=== PATIENT | female | born 1970 | race Caucasian/White ===

== ENCOUNTER 2016-10-25 13:06 | Inpatient (IN) | payer MEDICAID ==
[2016-10-25 13:07] VITALS: BMI 22.8
[2016-10-25] MEDS ORDERED: Sodium Chloride 0.9% 1,000 ML IV ONE ×2 (13:47→15:08)
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
[2016-10-25 14:29] LABS: BASO % 0.5 % (0.0-2.0); EOS # 0.1 K/uL (0.0-0.7); EOS % 1.9 % (0.0-4.0); HEMATOCRIT 34.6 % (34.0-47.0); LYMPH % 33.4 % (20.0-40.0); MEAN CELL VOLUME 80.1 fL (81.0-99.0); MEAN CORPUSCULAR HEMOGLOBIN 25.4 pg (27.0-31.0); MEAN CORPUSCULAR HGB CONC 31.7 g/dL (33.0-37.0); MEAN PLATELET VOLUME 10.4 fL (7.2-11.7); MONO # 0.6 K/uL (0.0-0.8); MONO % 9.9 % (0.0-10.0); RED CELL DISTRIBUTION WIDTH 15.4 % (11.5-14.5); WHITE BLOOD COUNT 5.9 K/uL (4.8-10.8)
[2016-10-25] MEDS ORDERED: Sodium Chloride 0.9% 0 ML ONE (14:33)
[2016-10-25 14:39] LABS: CHLORIDE 101 mmol/L (98-107); POTASSIUM 3.2 mmol/L (3.6-5.2); SODIUM 139 mmol/L (132-148)
[2016-10-25 14:41] LABS: GFR AFRICAN-AMERICAN > 60
[2016-10-25 14:42] LABS: ALB/GLOB RATIO 1.1 (1.0-2.1); ALKALINE PHOSPHATASE 79 U/L (38-126); ALT/SGPT 26 U/L (9-52); AST/SGOT 20 U/L (14-36); BILIRUBIN,TOTAL 0.8 mg/dL (0.2-1.3); BLOOD UREA NITROGEN 12 mg/dL (7-17); CARBON DIOXIDE 28 mmol/L (22-30); GLUCOSE,RANDOM 219 mg/dL (65-105); TOTAL PROTEIN 6.8 g/dL (6.3-8.3)
[2016-10-25 14:43] LABS: ALCOHOL SERUM < 10 mg/dl (0-10)
[2016-10-25 14:57] LABS: GRANULAR CAST 14 /lpf (0-1); RBC URINE 9 /hpf (0-3); URINE BILIRUBIN NEGATIVE (NEGATIVE); URINE COLOR Yellow (YELLOW); URINE GLUCOSE (UA) 3+ mg/dL (Normal); URINE KETONE 2+ mg/dL (NEGATIVE); URINE PROTEIN 1+ mg/dL (NEGATIVE); WBC URINE 9 /hpf (0-5)
[2016-10-25 14:58] LABS: URINE BLOOD TRACE (NEGATIVE); URINE LEUKOCYTE ESTERASE TRACE Leu/uL (Negative)
[2016-10-25] MEDS ORDERED: Sodium Chloride 0.9% 1,000 ML ONE (15:08)
--- NOTE | 2016-10-25 16:08 | RAD ---
PROCEDURE: Radiographs of the chest and abdomen (obstructive series) HISTORY: abd pain COMPARISON: No prior. TECHNIQUE: AP radiograph of the chest, with upright and supine radiographs of the abdomen. FINDINGS: CHEST: Lungs: Clear. Cardiovascular: Normal size heart. No pulmonary vascular congestion. Pleura: No pleural fluid. No pneumothorax. Other findings: None. ABDOMEN AND PELVIS: Bowel: Unremarkable bowel gas pattern. No evidence of mechanical obstruction. Free air: None. Bones: Unremarkable. Other findings: None. IMPRESSION: Unremarkable radiographs of chest and abdomen. No evidence of mechanical bowel obstruction.
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
[2016-10-25] MEDS: Dextrose 5%/0.45% NS 1,000 ML IV SCH (18:19)
[2016-10-25] MEDS: (Lantus) Insulin Glargine, Recombinant SC SCH (21:10)
[2016-10-25] MEDS: (Novolog) Insulin Aspart, Recombinant 100 u/ml 10 ml vial SC SCH (21:56)
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
[2016-10-26] MEDS: Levothyroxine 25 MCG TAB PO SCH (06:24)
[2016-10-26 07:05] LABS: BASO # 0.1 K/uL (0.0-0.2); BASO % 0.9 % (0.0-2.0); EOS # 0.3 K/uL (0.0-0.7); EOS % 5.1 % (0.0-4.0); HEMATOCRIT 31.3 % (34.0-47.0); LYMPH # 1.7 K/uL (1.0-4.3); LYMPH % 27.6 % (20.0-40.0); MEAN CELL VOLUME 79.5 fL (81.0-99.0); MEAN CORPUSCULAR HEMOGLOBIN 25.6 pg (27.0-31.0); MEAN CORPUSCULAR HGB CONC 32.2 g/dL (33.0-37.0); MEAN PLATELET VOLUME 10.6 fL (7.2-11.7); MONO # 0.5 K/uL (0.0-0.8); MONO % 7.8 % (0.0-10.0); RED CELL DISTRIBUTION WIDTH 15.3 % (11.5-14.5); WHITE BLOOD COUNT 6.1 K/uL (4.8-10.8)
[2016-10-26 07:15] LABS: INR 0.9
[2016-10-26 07:24] LABS: ALKALINE PHOSPHATASE 65 U/L (38-126); ALT/SGPT 21 U/L (9-52); AST/SGOT 15 U/L (14-36); BILIRUBIN,TOTAL 0.2 mg/dL (0.2-1.3); BLOOD UREA NITROGEN 10 mg/dL (7-17); CALCIUM 8.8 mg/dl (8.6-10.4); CARBON DIOXIDE 27 mmol/L (22-30); CHLORIDE 102 mmol/L (98-107); CHOLESTEROL 162 mg/dL (0-199); GFR AFRICAN-AMERICAN > 60; GLUCOSE,RANDOM 120 mg/dL (65-105); PHOSPHOROUS 4.2 mg/dL (2.5-4.5); POTASSIUM 3.1 mmol/L (3.6-5.2); SODIUM 136 mmol/L (132-148); TOTAL PROTEIN 5.6 g/dL (6.3-8.3)
[2016-10-26] MEDS: (Novolog) Insulin Aspart, Recombinant 100 u/ml 10 ml vial SC SCH ×7 (07:59→22:10)
[2016-10-26] MEDS: Dextrose 5%/0.45% NS 1,000 ML IV SCH ×2 (08:20→10:00)
[2016-10-26] MEDS: Pantoprazole 40 mg EC Tab PO SCH (10:02)
[2016-10-26] MEDS: Divalproex 500 mg DR Tab PO SCH ×2 (10:02→17:34)
[2016-10-26] MEDS ORDERED: Potassium Chloride 20 mEq/15 ml LIQ UD PO ONE (12:30)
--- NOTE | 2016-10-26 17:19 | CP.PCM.PN ---
<Alice Villalta DO - Last Filed: 10/26/16 17:08> Subjective - Date & Time of Evaluation Date of Evaluation: 10/26/16 Time of Evaluation: 11:00 - Subjective Subjective: Medicine progress note for Dr. Lundberg Patient seen and examined. Patient reports stomach "burning." She states this occurs even without eating or drinking but states that food exacerbates it. Objective - Vital Signs/Intake and Output Vital Signs (last 24 hours): Temp Pulse Resp BP Pulse Ox 98.2 F 93 H 20 119/71 100 10/26/16 15:00 10/26/16 15:00 10/26/16 15:00 10/26/16 15:00 10/26/16 15:00 - Medications Medications: Current Medications Atenolol (Tenormin) 50 mg PO DAILY [facility] Last Admin: 10/26/16 10:03 Dose: Not Given Clonazepam (Klonopin) 1 mg PO BID [facility] Last Admin: 10/26/16 10:01 Dose: 1 mg Divalproex Sodium (Depakote Dr) 500 mg PO BID [facility] Last Admin: 10/26/16 10:02 Dose: 500 mg Insulin Aspart (Novolog) 0 unit SC ACHS [facility] PRN Reason: Protocol Last Admin: 10/26/16 12:14 Dose: 2 unit Insulin Aspart (Novolog) 5 unit SC TIDAC [facility] Last Admin: 10/26/16 12:14 Dose: 5 unit Insulin Glargine (Lantus) 20 unit SC HS [facility] Last Admin: 10/25/16 21:10 Dose: 20 units Levothyroxine Sodium (Synthroid) 25 mcg PO DAILY@0630 [facility] Last Admin: 10/26/16 06:24 Dose: 25 mcg Pantoprazole Sodium (Protonix Ec Tab) 40 mg PO DAILY [facility] Last Admin: 10/26/16 10:02 Dose: 40 mg Quetiapine Fumarate (Seroquel) 200 mg PO [facility] Last Admin: 10/25/16 21:09 Dose: 200 mg Rosuvastatin Calcium (Crestor) 5 mg PO HS [facility] Last Admin: 10/25/16 21:09 Dose: 5 mg Sucralfate (Carafate Tab) 1 gm PO Q6H [facility] Last Admin: 10/26/16 12:14 Dose: 1 gm Zolpidem Tartrate (Ambien) 5 mg PO HS PRN PRN Reason: Insomnia Last Admin: 10/25/16 21:09 Dose: 5 mg - Labs Labs: PT 10.3 SECONDS (9.7-12.2) 10/26/16 06:59 INR 0.9 10/26/16 06:59 APTT 28 SECONDS (21-34) 10/26/16 06:59 - Constitutional Appears: Non-toxic, No Acute Distress - Head Exam Head Exam: ATRAUMATIC, NORMOCEPHALIC - Eye Exam Eye Exam: EOMI - ENT Exam ENT Exam: Mucous Membranes Moist - Respiratory Exam Respiratory Exam: Clear to Ausculation Bilateral, NORMAL BREATHING PATTERN. absent: Rales, Rhonchi, Wheezes - Cardiovascular Exam Cardiovascular Exam: +S1, +S2 - GI/Abdominal Exam GI & Abdominal Exam: Soft. absent: Rigid Additional comments: patient appears to voluntarily guard when patient distracted and palpating with stethoscope, patient does not guard - Extremities Exam Extremities Exam: Normal Inspection. absent: Pedal Edema - Neurological Exam Neurological Exam: Alert, Awake - Psychiatric Exam Psychiatric exam: Normal Affect - Skin Skin Exam: Dry, Warm Assessment and Plan - Assessment and Plan (Free Text) Assessment: (1) Epigastric abdominal pain Assessment and Plan: Questionable reproducible tenderness on exam- patient without guarding when distracted Patient has a hx of GERD and has been taking Prilosec for the past few days with no relief F/U GI Consult- Per GI, will start PPI on empty stomach. Patient needs better glycemic control as gastroparesis may be contributing Zofran on board Toradol given in ED altered GI diet Status: Acute (2) Diabetes mellitus Assessment and Plan: Monitor accuchecks F/C A1c ISS medium scale Lantus 20 units HS SC Novolog 5u TIDAC W/meals Parameters set for insulin administration Encourage patient to eat Status: Chronic (3) Hypothyroidism Assessment and Plan: TSH 3.5 Free T4 1.21 Synthroid 25 mcg in AM daily Status: Acute (4) Palpitations Assessment and Plan: On Atenolol 50 mg PO daily Parameters set for medication administration due to low normal BP Status: Acute (5) Hypercholesteremia Assessment and Plan: Check Lipid panel Crestor 5 mg PO HS Status: Acute (6) Bipolar disorder Assessment and Plan: Depakote BID, Seroquel nightly Cont to monitor Status: Acute (7) Anxiety Assessment and Plan: Ambien nightly PRN Clonazepam 1 mg PO BID Cont to monitor Status: Acute (8) Positive urine drug screen Assessment and Plan: Cannabinoid use positive despite denying use on initial evaluation Will need to quantify how much patient is using. Status: Acute (9) Prophylactic measure Assessment and Plan: PPI 40 mg PO daily on empty stomach SCDs Status: Acute <Seferino Lundberg M - Last Filed: 10/27/16 09:06> Objective - Vital Signs/Intake and Output Vital Signs (last 24 hours): Temp Pulse Resp BP Pulse Ox 98.3 F 88 20 93/60 L 98 10/27/16 08:00 10/27/16 08:00 10/27/16 08:00 10/27/16 08:00 10/27/16 08:00 Intake and Output: 10/27/16 10/27/16 06:59 18:59 Intake Total 450 Balance 450 - Medications Medications: Current Medications Atenolol (Tenormin) 50 mg PO DAILY [facility] Last Admin: 10/26/16 10:03 Dose: Not Given Clonazepam (Klonopin) 1 mg PO BID [facility] Last Admin: 10/26/16 17:34 Dose: 1 mg Divalproex Sodium (Depakote Dr) 500 mg PO BID [facility] Last Admin: 10/26/16 17:34 Dose: 500 mg Famotidine (Pepcid) 20 mg PO BID PRN PRN Reason: GI distress Last Admin: 10/27/16 08:28 Dose: 20 mg Insulin Aspart (Novolog) 0 unit SC ACHS [facility] PRN Reason: Protocol Last Admin: 10/27/16 08:30 Dose: 2 unit Insulin Aspart (Novolog) 5 unit SC TIDAC [facility] Last Admin: 10/27/16 08:30 Dose: 5 unit Insulin Glargine (Lantus) 20 unit SC HS [facility] Last Admin: 10/26/16 22:13 Dose: 20 units Levothyroxine Sodium (Synthroid) 25 mcg PO DAILY@0630 [facility] Last Admin: 10/27/16 05:31 Dose: 25 mcg Pantoprazole Sodium (Protonix Ec Tab) 40 mg PO DAILY [facility] Last Admin: 10/26/16 10:02 Dose: 40 mg Quetiapine Fumarate (Seroquel) 200 mg PO [facility] Last Admin: 10/26/16 22:10 Dose: 200 mg Rosuvastatin Calcium (Crestor) 5 mg PO HS [facility] Last Admin: 10/26/16 22:09 Dose: 5 mg Sucralfate (Carafate Tab) 1 gm PO Q6H [facility] Last Admin: 10/27/16 05:31 Dose: 1 gm Zolpidem Tartrate (Ambien) 5 mg PO HS PRN PRN Reason: Insomnia Last Admin: 10/25/16 21:09 Dose: 5 mg - Labs Labs: PT 10.3 SECONDS (9.7-12.2) 10/26/16 06:59 INR 0.9 10/26/16 06:59 APTT 28 SECONDS (21-34) 10/26/16 06:59 Attending/Attestation - Attestation I have personally seen and examined this patient.: Yes I have fully participated in the care of the patient.: Yes I have reviewed all pertinent clinical information, including history, physical exam and plan: Yes Notes (Text): 10/27/16 09:06 Patient was seen and examined at bedside Patient complains of abdominal pain upon eating GI evaluation seen in appreciated Patient started on Protonix and the Carafate May add Reglan if needed I discussed the plan of care with the resident and agree with the history and physical and assessment/plan documented.
[2016-10-26] MEDS: (Lantus) Insulin Glargine, Recombinant SC SCH (22:13)
[2016-10-27] MEDS: Levothyroxine 25 MCG TAB PO SCH (05:31)
[2016-10-27] MEDS: (Novolog) Insulin Aspart, Recombinant 100 u/ml 10 ml vial SC SCH ×7 (08:30→21:56)
[2016-10-27 09:18] LABS: BASO % 0.5 % (0.0-2.0); EOS # 0.4 K/uL (0.0-0.7); EOS % 7.1 % (0.0-4.0); HEMATOCRIT 30.4 % (34.0-47.0); LYMPH # 2.2 K/uL (1.0-4.3); LYMPH % 43.7 % (20.0-40.0); MEAN CELL VOLUME 80.8 fL (81.0-99.0); MEAN CORPUSCULAR HEMOGLOBIN 25.8 pg (27.0-31.0); MEAN PLATELET VOLUME 10.2 fL (7.2-11.7); MONO # 0.5 K/uL (0.0-0.8); MONO % 9.2 % (0.0-10.0); NRBC % 0.2 % (0.0-2.0); RED CELL DISTRIBUTION WIDTH 15.7 % (11.5-14.5)
[2016-10-27 09:32] LABS: CHLORIDE 107 mmol/L (98-107); POTASSIUM 3.7 mmol/L (3.6-5.2); SODIUM 141 mmol/L (132-148)
[2016-10-27 09:34] LABS: GFR AFRICAN-AMERICAN > 60
[2016-10-27 09:35] LABS: ALKALINE PHOSPHATASE 59 U/L (38-126); ALT/SGPT 21 U/L (9-52); AST/SGOT 14 U/L (14-36); BILIRUBIN,TOTAL 0.3 mg/dL (0.2-1.3); BLOOD UREA NITROGEN 8 mg/dL (7-17); CARBON DIOXIDE 29 mmol/L (22-30); GLUCOSE,RANDOM 124 mg/dL (65-105); TOTAL PROTEIN 5.5 g/dL (6.3-8.3)
[2016-10-27] MEDS: Pantoprazole 40 mg EC Tab PO SCH (09:35)
[2016-10-27 09:36] LABS: CALCIUM 8.1 mg/dl (8.6-10.4)
[2016-10-27] MEDS: Divalproex 500 mg DR Tab PO SCH ×2 (10:00→18:18)
[2016-10-27] MEDS ORDERED: Dextrose 50% SYRINGE Inj (50 ml) IV STA (11:30)
[2016-10-27] MEDS ORDERED: Dextrose 50% SYRINGE Inj (50 ml) ONE (11:35)
--- NOTE | 2016-10-27 14:42 | CP.PCM.PN ---
<Alice Villalta DO - Last Filed: 10/27/16 14:39> Subjective - Date & Time of Evaluation Date of Evaluation: 10/27/16 Time of Evaluation: 09:30 - Subjective Subjective: Medicine progress note for Dr. Lundberg Patient seen and examined. Patient still with complaint of "burning" in her stomach. Patient states that all food has a weird taste and that she has to force herself to eat. Patient states she has no interest in eating and that it often worsens her pain. Patient requesting endoscopy. Objective - Vital Signs/Intake and Output Vital Signs (last 24 hours): Temp Pulse Resp BP Pulse Ox 98.3 F 88 20 93/60 L 98 10/27/16 08:00 10/27/16 08:00 10/27/16 08:00 10/27/16 08:00 10/27/16 08:00 Intake and Output: 10/27/16 10/27/16 06:59 18:59 Intake Total 450 350 Balance 450 350 - Medications Medications: Current Medications Atenolol (Tenormin) 50 mg PO DAILY [facility] Last Admin: 10/27/16 10:53 Dose: Not Given Clonazepam (Klonopin) 1 mg PO BID [facility] Last Admin: 10/27/16 10:00 Dose: 1 mg Divalproex Sodium (Depakote Dr) 500 mg PO BID [facility] Last Admin: 10/27/16 10:00 Dose: 500 mg Famotidine (Pepcid) 20 mg PO BID PRN PRN Reason: GI distress Last Admin: 10/27/16 08:28 Dose: 20 mg Insulin Aspart (Novolog) 0 unit SC [facility] PRN Reason: Protocol Last Admin: 10/27/16 11:59 Dose: Not Given Insulin Aspart (Novolog) 5 unit SC TIDAC [facility] Last Admin: 10/27/16 11:59 Dose: Not Given Insulin Glargine (Lantus) 20 unit SC [facility] Last Admin: 10/26/16 22:13 Dose: 20 units Levothyroxine Sodium (Synthroid) 25 mcg PO DAILY@0630 [facility] Last Admin: 10/27/16 05:31 Dose: 25 mcg Metoclopramide HCl (Reglan) 5 mg PO TIDAC [facility] Last Admin: 10/27/16 10:55 Dose: 5 mg Pantoprazole Sodium (Protonix Ec Tab) 40 mg PO DAILY [facility] Last Admin: 10/27/16 09:35 Dose: 40 mg Quetiapine Fumarate (Seroquel) 200 mg PO HS [facility] Last Admin: 10/26/16 22:10 Dose: 200 mg Rosuvastatin Calcium (Crestor) 5 mg PO HS [facility] Last Admin: 10/26/16 22:09 Dose: 5 mg Sucralfate (Carafate Tab) 1 gm PO Q6H [facility] Last Admin: 10/27/16 13:00 Dose: 1 gm Zolpidem Tartrate (Ambien) 5 mg PO HS PRN PRN Reason: Insomnia Last Admin: 10/25/16 21:09 Dose: 5 mg - Labs Labs: 10/27/16 09:13 10/27/16 09:13 PT 10.3 SECONDS (9.7-12.2) 10/26/16 06:59 INR 0.9 10/26/16 06:59 APTT 28 SECONDS (21-34) 10/26/16 06:59 - Constitutional Appears: Toxic, No Acute Distress - Head Exam Head Exam: ATRAUMATIC, NORMOCEPHALIC - Eye Exam Eye Exam: EOMI - ENT Exam ENT Exam: Mucous Membranes Moist - Respiratory Exam Respiratory Exam: Clear to Ausculation Bilateral, NORMAL BREATHING PATTERN - Cardiovascular Exam Cardiovascular Exam: +S1, +S2 - GI/Abdominal Exam GI & Abdominal Exam: Soft, Hypoactive Bowel Sounds. absent: Tenderness ( patient does not guard or exhibit signs of tenderness when distracted during abdominal exam) - Extremities Exam Extremities Exam: Normal Inspection. absent: Pedal Edema - Neurological Exam Neurological Exam: Alert, Awake - Skin Skin Exam: Dry, Warm Assessment and Plan - Assessment and Plan (Free Text) Assessment: (1) Epigastric abdominal pain Assessment and Plan: Questionable reproducible tenderness on exam- patient without guarding when distracted Patient has a hx of GERD and has been taking Prilosec for the past few days with no relief obstructive series negative GI Consult, Dr. Espinosa: Per GI, will start PPI on empty stomach. Patient needs better glycemic control as gastroparesis may be contributing starting reglan 5mg TIDAC continue carafate EGD not emergent, may be done as outpatient Zofran on board Toradol given in ED altered GI diet will check stool studies Status: Acute (2) Diabetes mellitus Assessment and Plan: Monitor accuchecks F/U A1c ISS medium scale Lantus 20 units HS SC Novolog 5u TIDAC W/meals Parameters set for insulin administration Encourage patient to eat patient's sugars difficult to control as she is not eating well Status: Chronic (3) Hypothyroidism Assessment and Plan: TSH 3.5 Free T4 1.21 Synthroid 25 mcg in AM daily Status: Acute (4) Palpitations Assessment and Plan: On Atenolol 50 mg PO daily Parameters set for medication administration due to low normal BP Status: Acute (5) Hypercholesteremia Assessment and Plan: Crestor 5 mg PO HS Status: Acute (6) Bipolar disorder Assessment and Plan: Depakote BID, Seroquel nightly Cont to monitor Status: Acute (7) Anxiety Assessment and Plan: Ambien nightly PRN Clonazepam 1 mg PO BID Cont to monitor Status: Acute (8) Positive urine drug screen Assessment and Plan: Cannabinoid use positive despite denying use on initial evaluation Status: Acute (9) Prophylactic measure Assessment and Plan: PPI 40 mg PO daily on empty stomach SCDs Status: Acute <Seferino Lundberg M - Last Filed: 10/27/16 15:10> Objective - Vital Signs/Intake and Output Vital Signs (last 24 hours): Temp Pulse Resp BP Pulse Ox 98.3 F 88 20 93/60 L 98 10/27/16 08:00 10/27/16 08:00 10/27/16 08:00 10/27/16 08:00 10/27/16 08:00 Intake and Output: 10/27/16 10/27/16 06:59 18:59 Intake Total 450 350 Balance 450 350 - Medications Medications: Current Medications Atenolol (Tenormin) 50 mg PO DAILY [facility] Last Admin: 10/27/16 10:53 Dose: Not Given Clonazepam (Klonopin) 1 mg PO BID [facility] Last Admin: 10/27/16 10:00 Dose: 1 mg Divalproex Sodium (Depakote Dr) 500 mg PO BID [facility] Last Admin: 10/27/16 10:00 Dose: 500 mg Famotidine (Pepcid) 20 mg PO BID PRN PRN Reason: GI distress Last Admin: 10/27/16 08:28 Dose: 20 mg Insulin Aspart (Novolog) 0 unit SC [facility] PRN Reason: Protocol Last Admin: 10/27/16 11:59 Dose: Not Given Insulin Aspart (Novolog) 5 unit SC TIDAC [facility] Last Admin: 10/27/16 11:59 Dose: Not Given Insulin Glargine (Lantus) 20 unit SC [facility] Last Admin: 10/26/16 22:13 Dose: 20 units Levothyroxine Sodium (Synthroid) 25 mcg PO DAILY@0630 [facility] Last Admin: 10/27/16 05:31 Dose: 25 mcg Metoclopramide HCl (Reglan) 5 mg PO TIDAC [facility] Last Admin: 10/27/16 10:55 Dose: 5 mg Pantoprazole Sodium (Protonix Ec Tab) 40 mg PO DAILY [facility] Last Admin: 10/27/16 09:35 Dose: 40 mg Quetiapine Fumarate (Seroquel) 200 mg PO [facility] Last Admin: 10/26/16 22:10 Dose: 200 mg Rosuvastatin Calcium (Crestor) 5 mg PO [facility] Last Admin: 10/26/16 22:09 Dose: 5 mg Sucralfate (Carafate Tab) 1 gm PO Q6H [facility] Last Admin: 10/27/16 13:00 Dose: 1 gm Zolpidem Tartrate (Ambien) 5 mg PO HS PRN PRN Reason: Insomnia Last Admin: 10/25/16 21:09 Dose: 5 mg - Labs Labs: 10/27/16 09:13 10/27/16 09:13 PT 10.3 SECONDS (9.7-12.2) 10/26/16 06:59 INR 0.9 10/26/16 06:59 APTT 28 SECONDS (21-34) 10/26/16 06:59 Attending/Attestation - Attestation I have personally seen and examined this patient.: Yes I have fully participated in the care of the patient.: Yes I have reviewed all pertinent clinical information, including history, physical exam and plan: Yes Notes (Text): 10/27/16 15:08 Patient was seen and examined at bedside with the resident Patient still complains of burning sensation in the epigastric region upon eating I discussed with GI. Patient to continue on PPI and Carafate. I have added Reglan as per recommendations of GI for diabetic gastroparesis. No urgent need for endoscopy at this time. Patient can have an endoscopy and gastric motility study as outpatient upon discharge. She would need at least 4 weeks trial of PPI. Discussed with the patient, family at bedside. Discussed the plan of care with the resident and agree with the assessment and plan documented.
[2016-10-27] MEDS: (Lantus) Insulin Glargine, Recombinant SC SCH (21:57)
[2016-10-28] MEDS: Pantoprazole 40 mg EC Tab PO SCH ×2 (05:37→09:55)
[2016-10-28] MEDS: Levothyroxine 25 MCG TAB PO SCH (05:38)
[2016-10-28] MEDS: (Novolog) Insulin Aspart, Recombinant 100 u/ml 10 ml vial SC SCH ×7 (08:22→21:45)
[2016-10-28 08:47] LABS: BASO % 0.7 % (0.0-2.0); EOS # 0.2 K/uL (0.0-0.7); EOS % 3.8 % (0.0-4.0); HEMATOCRIT 30.9 % (34.0-47.0); LYMPH # 2.3 K/uL (1.0-4.3); LYMPH % 40.2 % (20.0-40.0); MEAN CELL VOLUME 79.8 fL (81.0-99.0); MEAN CORPUSCULAR HGB CONC 32.6 g/dL (33.0-37.0); MEAN PLATELET VOLUME 10.6 fL (7.2-11.7); MONO # 0.7 K/uL (0.0-0.8); MONO % 12.5 % (0.0-10.0); RED CELL DISTRIBUTION WIDTH 15.4 % (11.5-14.5); WHITE BLOOD COUNT 5.8 K/uL (4.8-10.8)
[2016-10-28 09:03] LABS: ALKALINE PHOSPHATASE 68 U/L (38-126); ALT/SGPT 22 U/L (9-52); AST/SGOT 16 U/L (14-36); BILIRUBIN,TOTAL 0.2 mg/dL (0.2-1.3); BLOOD UREA NITROGEN 12 mg/dL (7-17); CALCIUM 8.9 mg/dl (8.6-10.4); CARBON DIOXIDE 30 mmol/L (22-30); CHLORIDE 99 mmol/L (98-107); GFR AFRICAN-AMERICAN > 60; GLUCOSE,RANDOM 250 mg/dL (65-105); MAGNESIUM 2.1 mg/dL (1.6-2.3); PHOSPHOROUS 2.7 mg/dL (2.5-4.5); POTASSIUM 3.9 mmol/L (3.6-5.2); SODIUM 137 mmol/L (132-148); TOTAL PROTEIN 5.9 g/dL (6.3-8.3)
[2016-10-28] MEDS: Divalproex 500 mg DR Tab PO SCH ×2 (09:44→17:43)
--- NOTE | 2016-10-28 12:00 | CP.PCM.PN ---
<Nabeel Fagan - Last Filed: 10/28/16 11:43> Subjective - Date & Time of Evaluation Date of Evaluation: 10/28/16 Time of Evaluation: 11:43 - Subjective Subjective: PGY1 Note for Dr. Lopez HPI: Patient seen and examined at bedside. Laying in bed comfortably. States she still has burning pain when she eats and needs to force herself to eat. Patient states she is weak and losing weight. Mother is in the room and states she is unsteady when she walks to the bathroom and appears as if she has lost signifigant weight. Both mother and patient are frustrated that patient is not getting better. Explained in detail the effects of DM and how they would affect ones stomach as well as other possible complications of DM. Patient realy wants an EGD done but i told her she should follow up as an outpatient to get it done. Objective - Vital Signs/Intake and Output Vital Signs (last 24 hours): Temp Pulse Resp BP Pulse Ox 98.1 F 86 20 122/65 97 10/28/16 07:37 10/28/16 07:37 10/28/16 07:37 10/28/16 07:37 10/28/16 07:37 Intake and Output: 10/28/16 10/28/16 06:59 18:59 Intake Total 300 Balance 300 - Medications Medications: Current Medications Atenolol (Tenormin) 50 mg PO DAILY [facility] Last Admin: 10/28/16 09:55 Dose: 50 mg Clonazepam (Klonopin) 1 mg PO BID [facility] Last Admin: 10/28/16 09:51 Dose: 1 mg Divalproex Sodium (Depakote Dr) 500 mg PO BID [facility] Last Admin: 10/28/16 09:44 Dose: 500 mg Famotidine (Pepcid) 20 mg PO BID PRN PRN Reason: GI distress Last Admin: 10/27/16 17:12 Dose: 20 mg Insulin Aspart (Novolog) 0 unit SC ACHS [facility] PRN Reason: Protocol Last Admin: 10/28/16 11:39 Dose: 1 unit Insulin Aspart (Novolog) 5 unit SC TIDAC [facility] Last Admin: 10/28/16 11:40 Dose: 5 unit Insulin Glargine (Lantus) 20 unit SC HS [facility] Last Admin: 10/27/16 21:57 Dose: 20 units Levothyroxine Sodium (Synthroid) 25 mcg PO DAILY@0630 [facility] Last Admin: 10/28/16 05:38 Dose: 25 mcg Metoclopramide HCl (Reglan) 5 mg PO TIDAC [facility] Last Admin: 10/28/16 09:43 Dose: 5 mg Pantoprazole Sodium (Protonix Ec Tab) 40 mg PO DAILY [facility] Last Admin: 10/28/16 09:55 Dose: 40 mg Quetiapine Fumarate (Seroquel) 200 mg PO HS [facility] Last Admin: 10/27/16 21:56 Dose: 200 mg Rosuvastatin Calcium (Crestor) 5 mg PO HS [facility] Last Admin: 10/27/16 21:55 Dose: 5 mg Sucralfate (Carafate Tab) 1 gm PO Q6H [facility] Last Admin: 10/28/16 05:38 Dose: 1 gm Zolpidem Tartrate (Ambien) 5 mg PO HS PRN PRN Reason: Insomnia Last Admin: 10/27/16 21:55 Dose: 5 mg - Labs Labs: 10/28/16 08:34 10/28/16 08:34 PT 10.3 SECONDS (9.7-12.2) 10/26/16 06:59 INR 0.9 10/26/16 06:59 APTT 28 SECONDS (21-34) 10/26/16 06:59 - Constitutional Appears: Well, Non-toxic, No Acute Distress - Head Exam Head Exam: ATRAUMATIC, NORMAL INSPECTION, NORMOCEPHALIC - Eye Exam Eye Exam: EOMI - Respiratory Exam Respiratory Exam: Clear to Ausculation Bilateral - Cardiovascular Exam Cardiovascular Exam: REGULAR RHYTHM - GI/Abdominal Exam GI & Abdominal Exam: Soft, Normal Bowel Sounds. absent: Distended, Tenderness - Neurological Exam Neurological Exam: Alert, Awake, Oriented x3 - Psychiatric Exam Psychiatric exam: Normal Affect, Normal Mood - Skin Skin Exam: Dry, Intact, Normal Color, Warm Assessment and Plan - Assessment and Plan (Free Text) Assessment: (1) Epigastric abdominal pain Assessment and Plan: Questionable reproducible tenderness on exam- patient without guarding when distracted Patient has a hx of GERD and has been taking Prilosec for the past few days with no relief obstructive series negative GI Consult, Dr. Espinosa: * Per GI, will start PPI on empty stomach. Patient needs better glycemic control as gastroparesis may be contributing * starting reglan 5mg TIDAC * continue carafate * EGD not emergent, may be done as outpatient Zofran on board Toradol given in ED altered GI diet will check stool studies F/U abdominal CT Status: Acute (2) Diabetes mellitus Assessment and Plan: Monitor accuchecks F/U A1c ISS medium scale Lantus 20 units HS SC Novolog 5u TIDAC W/meals Parameters set for insulin administration Encourage patient to eat patient's sugars difficult to control as she is not eating well Status: Chronic (3) Hypothyroidism Assessment and Plan: TSH 3.5 Free T4 1.21 Synthroid 25 mcg in AM daily Status: Acute (4) Palpitations Assessment and Plan: On Atenolol 50 mg PO daily Parameters set for medication administration due to low normal BP Status: Acute (5) Hypercholesteremia Assessment and Plan: Crestor 5 mg PO HS Status: Acute (6) Bipolar disorder Assessment and Plan: Depakote BID, Seroquel nightly Cont to monitor Status: Acute (7) Anxiety Assessment and Plan: Ambien nightly PRN Clonazepam 1 mg PO BID Cont to monitor Status: Acute (8) Positive urine drug screen Assessment and Plan: Cannabinoid use positive despite denying use on initial evaluation Status: Acute (9) Prophylactic measure Assessment and Plan: PPI 40 mg PO daily on empty stomach SCDs Status: Acute F/U with case management for rehab options <Honorio Lopez - Last Filed: 10/28/16 13:37> Objective - Vital Signs/Intake and Output Vital Signs (last 24 hours): Temp Pulse Resp BP Pulse Ox 98.1 F 86 20 122/65 97 10/28/16 07:37 10/28/16 07:37 10/28/16 07:37 10/28/16 07:37 10/28/16 07:37 Intake and Output: 10/28/16 10/28/16 06:59 18:59 Intake Total 300 Balance 300 - Medications Medications: Current Medications Atenolol (Tenormin) 50 mg PO DAILY [facility] Last Admin: 10/28/16 09:55 Dose: 50 mg Clonazepam (Klonopin) 1 mg PO BID [facility] Last Admin: 10/28/16 09:51 Dose: 1 mg Divalproex Sodium (Depakote Dr) 500 mg PO BID [facility] Last Admin: 10/28/16 09:44 Dose: 500 mg Famotidine (Pepcid) 20 mg PO BID PRN PRN Reason: GI distress Last Admin: 10/27/16 17:12 Dose: 20 mg Insulin Aspart (Novolog) 0 unit SC ACHS [facility] PRN Reason: Protocol Last Admin: 10/28/16 11:39 Dose: 1 unit Insulin Aspart (Novolog) 5 unit SC TIDAC [facility] Last Admin: 10/28/16 11:40 Dose: 5 unit Insulin Glargine (Lantus) 20 unit SC HS [facility] Last Admin: 10/27/16 21:57 Dose: 20 units Levothyroxine Sodium (Synthroid) 25 mcg PO DAILY@0630 [facility] Last Admin: 10/28/16 05:38 Dose: 25 mcg Metoclopramide HCl (Reglan) 5 mg PO TIDAC [facility] Last Admin: 10/28/16 11:43 Dose: 5 mg Pantoprazole Sodium (Protonix Ec Tab) 40 mg PO DAILY [facility] Last Admin: 10/28/16 09:55 Dose: 40 mg Quetiapine Fumarate (Seroquel) 200 mg PO HS [facility] Last Admin: 10/27/16 21:56 Dose: 200 mg Rosuvastatin Calcium (Crestor) 5 mg PO [facility] Last Admin: 10/27/16 21:55 Dose: 5 mg Sucralfate (Carafate Tab) 1 gm PO Q6H [facility] Last Admin: 10/28/16 12:25 Dose: 1 gm Zolpidem Tartrate (Ambien) 5 mg PO HS PRN PRN Reason: Insomnia Last Admin: 10/27/16 21:55 Dose: 5 mg - Labs Labs: 10/28/16 08:34 10/28/16 08:34 PT 10.3 SECONDS (9.7-12.2) 10/26/16 06:59 INR 0.9 10/26/16 06:59 APTT 28 SECONDS (21-34) 10/26/16 06:59 Attending/Attestation - Attestation I have personally seen and examined this patient.: Yes I have fully participated in the care of the patient.: Yes I have reviewed all pertinent clinical information, including history, physical exam and plan: Yes Notes (Text): Medical Attending: Patient was seen and examined by me. Agree with the above note by the durable medical equipment technician. Patient's family in room as well. As mentioned previously they were at [facility] with I am told DKA and was then recently released from there. At this time it appears that the patient has ongoing abdominal pain and discomfort from diabetic gastroparesis and I explained to them at length that unfourtunately diabetes over the years can cause many problems and that diabetic gastroparesis was one of them. Family explains that patient is often alone by herself and recently remains very very weak. Diet was described as poor. They are unsure as to how patient will be able to care fore self while at home The patient did not appear to be in any acute distress when we came into the room and examined and discussed with the patient. They report she has difficulty walking. Will get PT/OT as well as casework supervisor evaluation. I was very careful to explain to the patient and family that we would try to avoid narcotic class medications and that utimately there may not be much we would be able to do for them thank you Honorio Lopez
[2016-10-28] MEDS ORDERED: Iohexol 300 100 ML IJ ONE (12:13)
--- NOTE | 2016-10-28 14:22 | CT ---
PROCEDURE: CT Abdomen and Pelvis with contrast HISTORY: Abdominal Pain COMPARISON: Abdomen pelvis CT 04/12/2015. TECHNIQUE: Contrast dose: Omnipaque 300, 100 cc Radiation dose: Total exam DLP = 509 mGy-cm. This CT exam was performed using one or more of the following dose reduction techniques: Automated exposure control, adjustment of the mA and/or kV according to patient size, and/or use of iterative reconstruction technique. FINDINGS: LOWER THORAX: Unremarkable. LIVER: A 2.7 cm likely benign hemangioma is again seen at the dome of the liver which is otherwise remarkable for a small lucency in the left lobe laterally, too small to characterize but stable. . No gross lesion or ductal dilatation. GALLBLADDER AND BILE DUCTS: Unremarkable. PANCREAS: Unremarkable. No gross lesion or ductal dilatation. SPLEEN: Unremarkable. ADRENALS: Unremarkable. No mass. KIDNEYS AND URETERS: Unremarkable. No hydronephrosis. No solid mass. VASCULATURE: Unremarkable. No aortic aneurysm. BOWEL: Lack of oral contrast limits interpretation of the stomach is distended with retained food. Prominent apical persists material seen throughout the proximal to mid large-bowel segments. There is a nonobstructive delete bowel gas pattern appreciated APPENDIX: The appendix not clearly identified however there is no CT evidence to suggest appendicitis at this time. PERITONEUM: Unremarkable. No free fluid. No free air. LYMPH NODES: Unremarkable. No enlarged lymph nodes. BLADDER: Urinary bladder is not fully distended and evaluation of the wall is difficult to make though appears less thickened than previously shown. Cystitis not completely excluded. Further clinical correlation advised. REPRODUCTIVE: Unremarkable. BONES: No acute fracture. OTHER FINDINGS: None. IMPRESSION: Possible constipation although the distal large bowel does not appear that distended with retained fecal material. Clinically correlate. No bowel obstruction, free air, mesenteric edema or ascites. Stable likely benign hemangioma dome of the right lobe liver. Small lucency in the left lobe is too small to characterize.
[2016-10-28] MEDS: (Lantus) Insulin Glargine, Recombinant SC SCH (21:43)
[2016-10-29] MEDS: Levothyroxine 25 MCG TAB PO SCH (05:30)
[2016-10-29 06:52] LABS: BASO # 0.1 K/uL (0.0-0.2); BASO % 0.8 % (0.0-2.0); EOS # 0.3 K/uL (0.0-0.7); EOS % 4.5 % (0.0-4.0); LYMPH % 44.9 % (20.0-40.0); MEAN CELL VOLUME 79.8 fL (81.0-99.0); MEAN CORPUSCULAR HEMOGLOBIN 25.7 pg (27.0-31.0); MEAN CORPUSCULAR HGB CONC 32.2 g/dL (33.0-37.0); MEAN PLATELET VOLUME 10.6 fL (7.2-11.7); MONO # 0.9 K/uL (0.0-0.8); MONO % 13.9 % (0.0-10.0); RED CELL DISTRIBUTION WIDTH 15.5 % (11.5-14.5); WHITE BLOOD COUNT 6.6 K/uL (4.8-10.8)
[2016-10-29 07:38] LABS: CHLORIDE 101 mmol/L (98-107); SODIUM 139 mmol/L (132-148)
[2016-10-29 07:40] LABS: BILIRUBIN,TOTAL 0.3 mg/dL (0.2-1.3); CARBON DIOXIDE 28 mmol/L (22-30); GFR AFRICAN-AMERICAN > 60
[2016-10-29 07:41] LABS: ALB/GLOB RATIO 1.1 (1.0-2.1); ALKALINE PHOSPHATASE 70 U/L (38-126); ALT/SGPT 15 U/L (9-52); AST/SGOT 18 U/L (14-36); BLOOD UREA NITROGEN 17 mg/dL (7-17); CALCIUM 8.7 mg/dl (8.6-10.4); GLUCOSE,RANDOM 253 mg/dL (65-105); TOTAL PROTEIN 5.9 g/dL (6.3-8.3)
[2016-10-29] MEDS: (Novolog) Insulin Aspart, Recombinant 100 u/ml 10 ml vial SC SCH ×7 (08:25→22:10)
--- NOTE | 2016-10-29 09:09 | CP.PCM.PN ---
<Gris Granados - Last Filed: 10/29/16 14:20> Subjective - Date & Time of Evaluation Date of Evaluation: 10/29/16 Time of Evaluation: 09:00 - Subjective Subjective: Medicine Progress Note: Patient was seen and examined at bedside in the AM. Patient states her last bowel movement was Friday and patient agreed to an enema. Patient states she would like to have her EGD done in the hospital if possible because she wants to know why she continues to have acid reflux. Patient states she does not want to go to a rehab facility after getting discharged but agrees to having home physical therapy. Patient did eat all of her breakfast. Patient denies nausea or vomiting. Objective - Vital Signs/Intake and Output Vital Signs (last 24 hours): Temp Pulse Resp BP Pulse Ox 98.2 F 88 20 95/62 L 98 10/29/16 07:55 10/29/16 07:55 10/29/16 07:55 10/29/16 07:55 10/29/16 07:55 Intake and Output: 10/29/16 10/29/16 06:59 18:59 Intake Total 300 Balance 300 - Medications Medications: Current Medications Atenolol (Tenormin) 50 mg PO DAILY [facility] Last Admin: 10/28/16 09:55 Dose: 50 mg Clonazepam (Klonopin) 1 mg PO BID [facility] Last Admin: 10/28/16 17:43 Dose: 1 mg Divalproex Sodium (Depakote Dr) 500 mg PO BID [facility] Last Admin: 10/28/16 17:43 Dose: 500 mg Famotidine (Pepcid) 20 mg PO BID PRN PRN Reason: GI distress Last Admin: 10/27/16 17:12 Dose: 20 mg Insulin Aspart (Novolog) 0 unit SC ACHS [facility] PRN Reason: Protocol Last Admin: 10/29/16 08:30 Dose: 3 unit Insulin Aspart (Novolog) 5 unit SC TIDAC [facility] Last Admin: 10/29/16 08:25 Dose: 5 unit Insulin Glargine (Lantus) 20 unit SC HS [facility] Last Admin: 10/28/16 21:43 Dose: 20 units Levothyroxine Sodium (Synthroid) 25 mcg PO DAILY@0630 [facility] Last Admin: 10/29/16 05:30 Dose: 25 mcg Metoclopramide HCl (Reglan) 5 mg PO TIDAC [facility] Last Admin: 10/28/16 16:42 Dose: 5 mg Pantoprazole Sodium (Protonix Ec Tab) 40 mg PO DAILY [facility] Last Admin: 10/28/16 09:55 Dose: 40 mg Quetiapine Fumarate (Seroquel) 200 mg PO HS [facility] Last Admin: 10/28/16 21:39 Dose: 200 mg Rosuvastatin Calcium (Crestor) 5 mg PO HS [facility] Last Admin: 10/28/16 21:39 Dose: 5 mg Sucralfate (Carafate Tab) 1 gm PO Q6H [facility] Last Admin: 10/29/16 05:30 Dose: 1 gm Zolpidem Tartrate (Ambien) 5 mg PO HS PRN PRN Reason: Insomnia Last Admin: 10/28/16 21:39 Dose: 5 mg - Labs Labs: 10/29/16 06:39 10/29/16 06:39 PT 10.3 SECONDS (9.7-12.2) 10/26/16 06:59 INR 0.9 10/26/16 06:59 APTT 28 SECONDS (21-34) 10/26/16 06:59 - Constitutional Appears: No Acute Distress - Head Exam Head Exam: ATRAUMATIC, NORMAL INSPECTION, NORMOCEPHALIC - Eye Exam Eye Exam: EOMI, Normal appearance, PERRL Pupil Exam: NORMAL ACCOMODATION, PERRL - ENT Exam ENT Exam: Mucous Membranes Moist - Respiratory Exam Respiratory Exam: Clear to Ausculation Bilateral, NORMAL BREATHING PATTERN - Cardiovascular Exam Cardiovascular Exam: REGULAR RHYTHM, RRR, +S1, +S2 - GI/Abdominal Exam GI & Abdominal Exam: Soft, Normal Bowel Sounds. absent: Tenderness - Extremities Exam Extremities Exam: Normal Inspection. absent: Tenderness - Neurological Exam Neurological Exam: Alert, Awake, Oriented x3 - Psychiatric Exam Psychiatric exam: Anxious - Skin Skin Exam: Normal Color, Warm Assessment and Plan - Assessment and Plan (Free Text) Plan: 1.) Epigastric abdominal pain Questionable reproducible tenderness on exam- patient without guarding when distracted Patient has a hx of GERD and has been taking Prilosec for the past few days with no relief obstructive series negative GI Consult, Dr. Espinosa: * Per GI, will start PPI on empty stomach. Patient needs better glycemic control as gastroparesis may be contributing * starting reglan 5mg TIDAC * continue carafate * EGD will be done 10/30/16 * NPO after midnight Zofran on board Toradol given in ED altered GI diet will check stool studies Abdominal/Pelvis CT: Possible constipation although the distal large bowel does not appear that distended with retained fecal material. Clinically correlate. No bowel obstruction, free air, mesenteric edema or ascites. Stable likely benign hemangioma dome of the right lobe liver. Small lucency in the left lobe is too small to characterize. -Enema was ordered 2.) Diabetes mellitus Monitor accuchecks hA1c:12.2 ISS medium scale Lantus 20 units HS SC Novolog 5u TIDAC W/meals Parameters set for insulin administration Encourage patient to eat patient's sugars difficult to control as she is not eating well 3.) Hypothyroidism TSH 3.5 Free T4 1.21 Synthroid 25 mcg in AM daily 4.) Palpitations On Atenolol 50 mg PO daily Parameters set for medication administration due to low normal BP 5.) Hypercholesteremia Crestor 5 mg PO HS 6.) Bipolar disorder Depakote BID, Seroquel nightly Cont to monitor 7.) Anxiety Ambien nightly PRN Clonazepam 1 mg PO BID Cont to monitor 8.) Positive urine drug screen Cannabinoid use positive despite denying use on initial evaluation 9.) Prophylactic measure PPI 40 mg PO daily on empty stomach SCDs Disposition: Home physical therapy, home nurse for diabetic medication and diet education Case discussed with Dr. Jessica Granados PGY-1 <Honorio Lopez H - Last Filed: 10/29/16 15:09> Objective - Vital Signs/Intake and Output Vital Signs (last 24 hours): Temp Pulse Resp BP Pulse Ox 98.2 F 88 20 91/58 L 98 10/29/16 07:55 10/29/16 12:14 10/29/16 07:55 10/29/16 12:14 10/29/16 12:14 Intake and Output: 10/29/16 10/29/16 06:59 18:59 Intake Total 300 Balance 300 - Medications Medications: Current Medications Atenolol (Tenormin) 50 mg PO DAILY [facility] Last Admin: 10/29/16 09:46 Dose: 50 mg Clonazepam (Klonopin) 1 mg PO BID [facility] Last Admin: 10/29/16 09:44 Dose: 1 mg Divalproex Sodium (Depakote Dr) 500 mg PO BID [facility] Last Admin: 10/29/16 09:45 Dose: 500 mg Famotidine (Pepcid) 20 mg PO BID PRN PRN Reason: GI distress Last Admin: 10/29/16 09:51 Dose: 20 mg Gabapentin (Neurontin) 100 mg PO TID [facility] Insulin Aspart (Novolog) 0 unit SC ACHS [facility] PRN Reason: Protocol Last Admin: 10/29/16 12:42 Dose: Not Given Insulin Aspart (Novolog) 5 unit SC TIDAC [facility] Last Admin: 10/29/16 11:56 Dose: Not Given Insulin Glargine (Lantus) 20 unit SC [facility] Last Admin: 10/28/16 21:43 Dose: 20 units Levothyroxine Sodium (Synthroid) 25 mcg PO DAILY@0630 [facility] Last Admin: 10/29/16 05:30 Dose: 25 mcg Metoclopramide HCl (Reglan) 5 mg PO TIDAC [facility] Last Admin: 10/29/16 12:01 Dose: 5 mg Pantoprazole Sodium (Protonix Ec Tab) 40 mg PO DAILY [facility] Last Admin: 10/29/16 12:01 Dose: 40 mg Quetiapine Fumarate (Seroquel) 200 mg PO HS [facility] Last Admin: 10/28/16 21:39 Dose: 200 mg Rosuvastatin Calcium (Crestor) 5 mg PO HS [facility] Last Admin: 10/28/16 21:39 Dose: 5 mg Sucralfate (Carafate Tab) 1 gm PO Q6H [facility] Last Admin: 10/29/16 12:41 Dose: Not Given Zolpidem Tartrate (Ambien) 5 mg PO HS PRN PRN Reason: Insomnia Last Admin: 10/28/16 21:39 Dose: 5 mg - Labs Labs: 10/29/16 06:39 10/29/16 06:39 PT 10.3 SECONDS (9.7-12.2) 10/26/16 06:59 INR 0.9 10/26/16 06:59 APTT 28 SECONDS (21-34) 10/26/16 06:59 Attending/Attestation - Attestation I have personally seen and examined this patient.: Yes I have fully participated in the care of the patient.: Yes I have reviewed all pertinent clinical information, including history, physical exam and plan: Yes Notes (Text): 10/29/16 15:06 Medical Attending: Patient was seen and examined by me. Agree with the above note by the resident. We discussed rehab as the patient is weak - and she stated she is able to walk on her own and does not want to do so. Further more we discussed the CT scan from yesterday which showed a lot of retained stool - and she agreed to try an enema. Dee related to gastroparesis She is interested in PT at home as well as a possible home visiting nurse/aid. GI is considering possible endoscopy as well. thank you Honorio Lopez
[2016-10-29] MEDS: Divalproex 500 mg DR Tab PO SCH ×2 (09:45→17:22)
[2016-10-29] MEDS: Pantoprazole 40 mg EC Tab PO SCH (12:01)
[2016-10-29] MEDS: (Lantus) Insulin Glargine, Recombinant SC SCH (22:10)
[2016-10-30] MEDS: Levothyroxine 25 MCG TAB PO SCH (06:10)
[2016-10-30] MEDS: (Novolog) Insulin Aspart, Recombinant 100 u/ml 10 ml vial SC SCH ×6 (08:00→17:12)
[2016-10-30 08:15] LABS: BASO % 0.8 % (0.0-2.0); EOS # 0.2 K/uL (0.0-0.7); EOS % 3.6 % (0.0-4.0); HEMATOCRIT 31.9 % (34.0-47.0); LYMPH # 2.4 K/uL (1.0-4.3); LYMPH % 38.4 % (20.0-40.0); MEAN CELL VOLUME 80.9 fL (81.0-99.0); MEAN CORPUSCULAR HEMOGLOBIN 25.5 pg (27.0-31.0); MEAN CORPUSCULAR HGB CONC 31.6 g/dL (33.0-37.0); MONO # 0.9 K/uL (0.0-0.8); NRBC % 0.1 % (0.0-2.0); RED CELL DISTRIBUTION WIDTH 15.3 % (11.5-14.5); WHITE BLOOD COUNT 6.2 K/uL (4.8-10.8)
[2016-10-30 08:17] LABS: INR 0.9
[2016-10-30 08:31] LABS: BLOOD UREA NITROGEN 21 mg/dL (7-17); CARBON DIOXIDE 28 mmol/L (22-30); GFR AFRICAN-AMERICAN > 60; POTASSIUM 4.9 mmol/L (3.6-5.2)
[2016-10-30 08:55] LABS: GLUCOSE,RANDOM 551 mg/dL (65-105)
[2016-10-30 08:56] LABS: CHLORIDE 96 mmol/L (98-107); SODIUM 133 mmol/L (132-148)
[2016-10-30] MEDS: Divalproex 500 mg DR Tab PO SCH (09:48)
[2016-10-30] MEDS: Pantoprazole 40 mg EC Tab PO SCH (09:49)
[2016-10-30] MEDS ORDERED: Midazolam 2 MG/2 ML VIAL ONE ×2 (12:25→12:40)
[2016-10-30] MEDS ORDERED: Propofol 10 mg/ml Inj (20 ML) ONE (12:25)
[2016-10-30 13:10] VITALS: O2SAT 100
--- NOTE | 2016-10-30 13:23 | CP.PCM.DIS ---
<Gris Granados - Last Filed: 10/30/16 17:13> Provider - Provider Date of Admission: 10/26/16 16:36 Attending physician: Seferino Lundberg MD Time Spent in preparation of Discharge (in minutes): 40 Hospital Course - Lab Results Lab Results: Most Recent Lab Values WBC 6.2 K/uL (4.8-10.8) 10/30/16 08:02 RBC 3.95 Mil/uL (3.80-5.20) 10/30/16 08:02 Hgb 10.1 g/dL (11.0-16.0) L 10/30/16 08:02 Hct 31.9 % (34.0-47.0) L 10/30/16 08:02 MCV 80.9 fL (81.0-99.0) L 10/30/16 08:02 MCH 25.5 pg (27.0-31.0) L 10/30/16 08:02 MCHC 31.6 g/dL (33.0-37.0) L 10/30/16 08:02 RDW 15.3 % (11.5-14.5) H 10/30/16 08:02 Plt Count 273 K/uL (130-400) 10/30/16 08:02 MPV 11.0 fL (7.2-11.7) 10/30/16 08:02 Neut % (Auto) 43.2 % (50.0-75.0) L 10/30/16 08:02 Lymph % (Auto) 38.4 % (20.0-40.0) 10/30/16 08:02 [place] % (Auto) 14.0 % (0.0-10.0) H 10/30/16 08:02 Eos % (Auto) 3.6 % (0.0-4.0) 10/30/16 08:02 Baso % (Auto) 0.8 % (0.0-2.0) 10/30/16 08:02 Neut # 2.7 K/uL (1.8-7.0) 10/30/16 08:02 Lymph # 2.4 K/uL (1.0-4.3) 10/30/16 08:02 [place] # 0.9 K/uL (0.0-0.8) H 10/30/16 08:02 Eos # 0.2 K/uL (0.0-0.7) 10/30/16 08:02 Baso # 0.0 K/uL (0.0-0.2) 10/30/16 08:02 PT 10.3 SECONDS (9.7-12.2) 10/30/16 08:02 INR 0.9 10/30/16 08:02 APTT 28 SECONDS (21-34) 10/26/16 06:59 Sodium 133 mmol/L (132-148) 10/30/16 08:02 Potassium 4.9 mmol/L (3.6-5.2) 10/30/16 08:02 Chloride 96 mmol/L (98-107) L 10/30/16 08:02 Carbon Dioxide 28 mmol/L (22-30) 10/30/16 08:02 Anion Gap 14 (10-20) 10/30/16 08:02 BUN 21 mg/dL (7-17) H 10/30/16 08:02 Creatinine 0.7 MG/DL (0.7-1.2) 10/30/16 08:02 Est GFR ( Amer) > 60 10/30/16 08:02 Est GFR (Non-Af Amer) > 60 10/30/16 08:02 POC Glucose (mg/dL) 314 mg/dL (65-110) H 10/30/16 11:39 Random Glucose 551 mg/dL (65-105) H* D 10/30/16 08:02 Hemoglobin A1c 12.2 % (4.2-6.5) H 10/26/16 06:59 Calcium 9.0 mg/dl (8.6-10.4) 10/30/16 08:02 Phosphorus 2.7 mg/dL (2.5-4.5) 10/28/16 08:34 Magnesium 2.1 mg/dL (1.6-2.3) 10/28/16 08:34 Total Bilirubin 0.3 mg/dL (0.2-1.3) 10/29/16 06:39 AST 18 U/L (14-36) 10/29/16 06:39 ALT 15 U/L (9-52) 10/29/16 06:39 Alkaline Phosphatase 70 U/L (38-126) 10/29/16 06:39 Ammonia < 9 umol/L (9-33) L 10/25/16 14:20 Total Protein 5.9 g/dL (6.3-8.3) L 10/29/16 06:39 Albumin 3.1 g/dL (3.5-5.0) L 10/29/16 06:39 Globulin 2.9 gm/dL (2.2-3.9) 10/29/16 06:39 Albumin/Globulin Ratio 1.1 (1.0-2.1) 10/29/16 06:39 Triglycerides 162 mg/dL (0-149) H 10/26/16 06:59 Cholesterol 162 mg/dL (0-199) 10/26/16 06:59 LDL Cholesterol Direct 111 mg/dL (0-129) 10/26/16 06:59 HDL Cholesterol 40 mg/dL (30-70) 10/26/16 06:59 Lipase 246 U/L (23-300) 10/25/16 14:20 Free T4 1.21 ng/dL (0.78-2.19) 10/26/16 06:59 TSH 3rd Generation 3.50 mIU/L (0.46-4.68) 10/26/16 06:59 Urine Color Yellow (YELLOW) 10/25/16 14:32 Urine Clarity Hazy (Clear) 10/25/16 14:32 Urine pH 5.0 (5.0-8.0) 10/25/16 14:32 Ur Specific [place] 1.025 (1.003-1.030) 10/25/16 14:32 Urine Protein 1+ mg/dL (NEGATIVE) H 10/25/16 14:32 Urine Glucose (UA) 3+ mg/dL (Normal) H 10/25/16 14:32 Urine Ketones 2+ mg/dL (NEGATIVE) H 10/25/16 14:32 Urine Blood Trace (NEGATIVE) H 10/25/16 14:32 Urine Nitrate Negative (NEGATIVE) 10/25/16 14:32 Urine Bilirubin Negative (NEGATIVE) 10/25/16 14:32 Urine Urobilinogen 2.0 mg/dL (0.2-1.0) H 10/25/16 14:32 Ur Leukocyte Esterase Trace Gloria/uL (Negative) H 10/25/16 14:32 Urine WBC (Auto) 9 /hpf (0-5) H 10/25/16 14:32 Urine RBC (Auto) 9 /hpf (0-3) H 10/25/16 14:32 Ur Squamous Epith Cells 6 /hpf (0-5) H 10/25/16 14:32 Hyaline Casts 6-10 /lpf (0-2) H 10/25/16 14:32 Granular Casts (Auto) 14 /lpf (0-1) 10/25/16 14:32 Urine HCG, Qual Negative (NEGATIVE) 10/30/16 07:13 Stool Leukocytes, Qual Negative (NEGATIVE) 10/27/16 14:30 Urine Opiates Screen Negative (NEGATIVE) 10/25/16 14:32 Urine Methadone Screen Negative (NEGATIVE) 10/25/16 14:32 Ur Barbiturates Screen Negative (NEGATIVE) 10/25/16 14:32 Ur Phencyclidine Scrn Negative (NEGATIVE) 10/25/16 14:32 Ur Amphetamines Screen Negative (NEGATIVE) 10/25/16 14:32 U Benzodiazepines Scrn Negative (NEGATIVE) 10/25/16 14:32 U Oth Cocaine Metabols Negative (NEGATIVE) 10/25/16 14:32 U Cannabinoids Screen Positive (NEGATIVE) 10/25/16 14:32 Alcohol, Quantitative < 10 mg/dl (0-10) 10/25/16 14:20 - Hospital Course Hospital Course: Pt states that her emergency contact is her son: Kirk Schroeder. He can be reached at [phone]. She would like to be DNI at this time. She does not have a POLST form at this time. CC: burning epigastric pain HPI: 45 year old female with PMHx significant for DM, Hypothyroidism, GERD, Hypercholesterolemia, Palpitations, Bipolar disorder and Poor circulation of unspecified etiology presents with complaints of burning epigastric pain that she has been experiencing for the past few days. Of note, patient was recently admitted to [facility] on Friday for DKA for which she was treated for a brief period of time. Patient states that she was downgraded to the medical floor on Friday and remained for two days. She states that while on the medical floor she began experiencing this epigastric pain that was unrelieved by any treatment. She states that she mentioned her pain while there, but was told that her symptoms were probable related to GERD. She was then prescribed with Prilosec to take upon discharge. Patient states that she has not been able to physically eat anything since Friday. She admits to nausea and weakness due to lack of food intake. She also admits to some diarrhea on Friday and then lack of bowel movements since then. She denies dysuria, polyuria, polydipsia, polyphagia, urinary frequency, urinary urgency, vomiting, chest pain, palpitations, or headaches at this time. PMHx- as noted above Past Surg Hx- section X 2, appendectomy 2009, bilateral tubal ligation 1996, ankle repair x2 Fam Hx- Mom has Hypothyroidism, Heart murmur and high cholesterol Meds- Extensive. Refer to Medical record Social Hx- denies tobacco use, admits to social alcohol use, denies drug use however UDS positive for cannabinoids Allergies- Ancef- causes facial swelling. PMD- Dr. Rob ( last visited 6 months prior Endo: Dr. Anthony Herrera ( last visited 2 months prior) Patient states that she was recommended to begin using an insulin pump however she has not gotten around to it. In the ED: Patient was administered toradol, zofran, protonix, Kdur and normal saline bolus. Hospital Course: 10/25/16: Patient is a 45 F with a history of diabetes, hypothyroid, GERD, hypercholestermia, bipolar disorder, and poor circulation reports to ED for burning epigastric pain. Abdomen obstructive series performed in ED and was unremarkable showing no mechanical obstruction. Patient admitted due to severity of symptoms and further workup. 10/26/16: Dr. Espinosa consulted for GI symptoms 10/27/16: Abdomen and Pelvis CT scan with contrast performed and showed possible constipation with no distention of the distal large bowel with fecal material, no bowel obstruction, no free air, no mesenteric edema, no ascites, stable hemangioma found in dome of right lobe of the liver. 10/29/16: Endoscopy performed and showed irregular Z line, esophagitis, gastritis , normal duodenum, biopsies taken from esophagus and stomach. Patient stable for discharge per Dr. Lopez. Patient to follow up with primary care physician in 1 week. Please give patient directly a copy of her lab work and EGD report from this admission in the hospital. Patient will receive home physical therapy. Patient will receive a visiting nurse for diabetic education. Patient to resume all home medications. Patient to return to emergency room if symptoms return or worsen. This is a brief summary of events. For a complete course, refer to the medical record. Discharge Exam - Head Exam Head Exam: ATRAUMATIC, NORMAL INSPECTION, NORMOCEPHALIC - Eye Exam Eye Exam: EOMI, Normal appearance, PERRL Pupil Exam: NORMAL ACCOMODATION - ENT Exam ENT Exam: Mucous Membranes Moist - Respiratory Exam Respiratory Exam: Clear to PA & Lateral, NORMAL BREATHING PATTERN - Cardiovascular Exam Cardiovascular Exam: REGULAR RHYTHM, RRR, +S1, +S2 - GI/Abdominal Exam GI & Abdominal Exam: Normal Bowel Sounds, Soft. absent: Tenderness - Extremities Exam Extremities exam: normal inspection - Neurological Exam Neurological exam: Alert, Oriented x3 - Psychiatric Exam Psychiatric exam: Normal Affect - Skin Skin Exam: Normal Color, Warm Discharge Plan - Follow Up Plan Condition: GOOD Disposition: HOME/ ROUTINE Instructions: Hypokalemia (DC), Diabetic Foot Care (DC), Meal Planning with Diabetes Exchanges (DC) Referrals: Myla Rob MD [Staff Provider] - <Honorio Lopez - Last Filed: 10/30/16 18:03> Provider - Provider Date of Admission: 10/26/16 16:36 Attending physician: Honorio Lopez DO Hospital Course - Lab Results Lab Results: Micro Results 10/29/16 14:30 Stool Ova and Parasite Concentrate Exam - Final Most Recent Lab Values WBC 6.2 K/uL (4.8-10.8) 10/30/16 08:02 RBC 3.95 Mil/uL (3.80-5.20) 10/30/16 08:02 Hgb 10.1 g/dL (11.0-16.0) L 10/30/16 08:02 Hct 31.9 % (34.0-47.0) L 10/30/16 08:02 MCV 80.9 fL (81.0-99.0) L 10/30/16 08:02 MCH 25.5 pg (27.0-31.0) L 10/30/16 08:02 MCHC 31.6 g/dL (33.0-37.0) L 10/30/16 08:02 RDW 15.3 % (11.5-14.5) H 10/30/16 08:02 Plt Count 273 K/uL (130-400) 10/30/16 08:02 MPV 11.0 fL (7.2-11.7) 10/30/16 08:02 Neut % (Auto) 43.2 % (50.0-75.0) L 10/30/16 08:02 Lymph % (Auto) 38.4 % (20.0-40.0) 10/30/16 08:02 [place] % (Auto) 14.0 % (0.0-10.0) H 10/30/16 08:02 Eos % (Auto) 3.6 % (0.0-4.0) 10/30/16 08:02 Baso % (Auto) 0.8 % (0.0-2.0) 10/30/16 08:02 Neut # 2.7 K/uL (1.8-7.0) 10/30/16 08:02 Lymph # 2.4 K/uL (1.0-4.3) 10/30/16 08:02 [place] # 0.9 K/uL (0.0-0.8) H 10/30/16 08:02 Eos # 0.2 K/uL (0.0-0.7) 10/30/16 08:02 Baso # 0.0 K/uL (0.0-0.2) 10/30/16 08:02 PT 10.3 SECONDS (9.7-12.2) 10/30/16 08:02 INR 0.9 10/30/16 08:02 APTT 28 SECONDS (21-34) 10/26/16 06:59 Sodium 133 mmol/L (132-148) 10/30/16 08:02 Potassium 4.9 mmol/L (3.6-5.2) 10/30/16 08:02 Chloride 96 mmol/L (98-107) L 10/30/16 08:02 Carbon Dioxide 28 mmol/L (22-30) 10/30/16 08:02 Anion Gap 14 (10-20) 10/30/16 08:02 BUN 21 mg/dL (7-17) H 10/30/16 08:02 Creatinine 0.7 MG/DL (0.7-1.2) 10/30/16 08:02 Est GFR ( Amer) > 60 10/30/16 08:02 Est GFR (Non-Af Amer) > 60 10/30/16 08:02 POC Glucose (mg/dL) 310 mg/dL (65-110) H 10/30/16 16:28 Random Glucose 551 mg/dL (65-105) H* D 10/30/16 08:02 Hemoglobin A1c 12.2 % (4.2-6.5) H 10/26/16 06:59 Calcium 9.0 mg/dl (8.6-10.4) 10/30/16 08:02 Phosphorus 2.7 mg/dL (2.5-4.5) 10/28/16 08:34 Magnesium 2.1 mg/dL (1.6-2.3) 10/28/16 08:34 Total Bilirubin 0.3 mg/dL (0.2-1.3) 10/29/16 06:39 AST 18 U/L (14-36) 10/29/16 06:39 ALT 15 U/L (9-52) 10/29/16 06:39 Alkaline Phosphatase 70 U/L (38-126) 10/29/16 06:39 Ammonia < 9 umol/L (9-33) L 10/25/16 14:20 Total Protein 5.9 g/dL (6.3-8.3) L 10/29/16 06:39 Albumin 3.1 g/dL (3.5-5.0) L 10/29/16 06:39 Globulin 2.9 gm/dL (2.2-3.9) 10/29/16 06:39 Albumin/Globulin Ratio 1.1 (1.0-2.1) 10/29/16 06:39 Triglycerides 162 mg/dL (0-149) H 10/26/16 06:59 Cholesterol 162 mg/dL (0-199) 10/26/16 06:59 LDL Cholesterol Direct 111 mg/dL (0-129) 10/26/16 06:59 HDL Cholesterol 40 mg/dL (30-70) 10/26/16 06:59 Lipase 246 U/L (23-300) 10/25/16 14:20 Free T4 1.21 ng/dL (0.78-2.19) 10/26/16 06:59 TSH 3rd Generation 3.50 mIU/L (0.46-4.68) 10/26/16 06:59 Urine Color Yellow (YELLOW) 10/25/16 14:32 Urine Clarity Hazy (Clear) 10/25/16 14:32 Urine pH 5.0 (5.0-8.0) 10/25/16 14:32 Ur Specific [place] 1.025 (1.003-1.030) 10/25/16 14:32 Urine Protein 1+ mg/dL (NEGATIVE) H 10/25/16 14:32 Urine Glucose (UA) 3+ mg/dL (Normal) H 10/25/16 14:32 Urine Ketones 2+ mg/dL (NEGATIVE) H 10/25/16 14:32 Urine Blood Trace (NEGATIVE) H 10/25/16 14:32 Urine Nitrate Negative (NEGATIVE) 10/25/16 14:32 Urine Bilirubin Negative (NEGATIVE) 10/25/16 14:32 Urine Urobilinogen 2.0 mg/dL (0.2-1.0) H 10/25/16 14:32 Ur Leukocyte Esterase Trace Gloria/uL (Negative) H 10/25/16 14:32 Urine WBC (Auto) 9 /hpf (0-5) H 10/25/16 14:32 Urine RBC (Auto) 9 /hpf (0-3) H 10/25/16 14:32 Ur Squamous Epith Cells 6 /hpf (0-5) H 10/25/16 14:32 Hyaline Casts 6-10 /lpf (0-2) H 10/25/16 14:32 Granular Casts (Auto) 14 /lpf (0-1) 10/25/16 14:32 Urine HCG, Qual Negative (NEGATIVE) 10/30/16 07:13 Stool Leukocytes, Qual Negative (NEGATIVE) 10/27/16 14:30 Stl Cryptosporidium Ag Not detected (Not detected) 10/27/16 14:50 Urine Opiates Screen Negative (NEGATIVE) 10/25/16 14:32 Urine Methadone Screen Negative (NEGATIVE) 10/25/16 14:32 Ur Barbiturates Screen Negative (NEGATIVE) 10/25/16 14:32 Ur Phencyclidine Scrn Negative (NEGATIVE) 10/25/16 14:32 Ur Amphetamines Screen Negative (NEGATIVE) 10/25/16 14:32 U Benzodiazepines Scrn Negative (NEGATIVE) 10/25/16 14:32 U Oth Cocaine Metabols Negative (NEGATIVE) 10/25/16 14:32 U Cannabinoids Screen Positive (NEGATIVE) 10/25/16 14:32 Alcohol, Quantitative < 10 mg/dl (0-10) 10/25/16 14:20 Cryptosp/Giardia Source Stool 10/27/16 14:50 Giardia Antigen Not detected (Not Detected) 10/27/16 14:50 Attending/Attestation - Attestation I have personally seen and examined this patient.: Yes I have fully participated in the care of the patient.: Yes I have reviewed all pertinent clinical information, including history, physical exam and plan: Yes Notes (Text): 10/30/16 17:55 Medical Attending: Patient was seen and examined by me. Agree with the above note by the resident. Patient had EGD today as well. She will be discharged today and will also have home PT as well as home visiting aid/nurse I spoke with the the patient's parents as well. She needs to follow up with her primary care physician as well. As mentioned previously the patient has a long standing history of DM and unfourtunately appears to have developed diabetic gastroparesis. She had a CT of the abd and pelvis which revealed a lot of retained stool and this was relieved with the help of enema. Otherwise the CBC as well as CMP are stable. We emphazied carefully to the patient she really does need to check her sugars as well as take her medication for diabetes otherwise the gastroparesis could worsen thank you Honorio Lopez
[2016-10-30 13:31] VITALS: RESP 20
[2016-10-30] MEDS ORDERED: Pantoprazole 40 mg EC Tab PO SCH (16:30)
[2016-10-30 16:37] VITALS: BP 93/60; PULSE 90; TEMP 98.7
[2016-10-30] MEDS ORDERED: Sucralfate 1 gm/10 ml Oral Susp UD PO SCH (18:00)
== END 2016-10-30 18:00 | disposition home or self-care (01) | DRG 18 ==
LOC: C.ER 13:06 → C.3T 15:16 → OBSVTOIN 10-26 16:36 → C.3T 10-28 17:53
PROVIDERS: ADMIT Hospitalist; ATTEND Hospitalist
PROC: 0DB88ZX Excision of Small Intestine, Via Natural or Artificial Opening Endoscopic, Diagnostic (ICD-10-PCS; principal; 2016-10-30 12:31)
DX: E10.43 Type 1 diabetes mellitus with diabetic autonomic (poly)neuropathy (principal); E10.65 Type 1 diabetes mellitus with hyperglycemia; I10 Essential (primary) hypertension; E87.6 Hypokalemia; K21.0 Gastro-esophageal reflux disease with esophagitis; K29.70 Gastritis, unspecified, without bleeding; K31.84 Gastroparesis; K59.00 Constipation, unspecified; F41.9 Anxiety disorder, unspecified; F31.9 Bipolar disorder, unspecified; E78.00 Pure hypercholesterolemia, unspecified; E03.9 Hypothyroidism, unspecified; F12.90 Cannabis use, unspecified, uncomplicated

== ENCOUNTER 2017-09-29 14:46 | Emergency (ER) | payer MEDICAID ==
[2017-09-29 14:47] VITALS: BMI 17.6
[2017-09-29 14:57] VITALS: TEMP 98
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
[2017-09-29 15:47] LABS: BASO # 0.1 K/uL (0.0-0.2); BASO % 1.6 % (0.0-2.0); EOS # 0.4 K/uL (0.0-0.7); EOS % 5.1 % (0.0-4.0); HEMOGLOBIN 10.7 g/dL (11.0-16.0); LYMPH % 27.1 % (20.0-40.0); MEAN CORPUSCULAR HEMOGLOBIN 24.9 pg (27.0-31.0); MEAN CORPUSCULAR HGB CONC 32.7 g/dL (33.0-37.0); MEAN PLATELET VOLUME 11.1 fL (7.2-11.7); MONO # 0.6 K/uL (0.0-0.8); MONO % 8.2 % (0.0-10.0); NEUT # 4.2 K/uL (1.8-7.0); RBC 4.29 Mil/uL (3.80-5.20); RED CELL DISTRIBUTION WIDTH 15.7 % (11.5-14.5); WHITE BLOOD COUNT 7.3 K/uL (4.8-10.8)
[2017-09-29 15:49] LABS: MEAN CELL VOLUME 76.2 fL (81.0-99.0)
[2017-09-29 16:03] LABS: ALB/GLOB RATIO 1.4 (1.0-2.1); ALBUMIN 4.1 g/dL (3.5-5.0); ALT/SGPT 25 U/L (9-52); AST/SGOT 16 U/L (14-36); BLOOD UREA NITROGEN 25 mg/dL (7-17); CALCIUM 9.4 mg/dl (8.6-10.4); GFR AFRICAN-AMERICAN 59; GFR NON-AFRICAN AMERICAN 49
[2017-09-29 16:14] LABS: CK-MB 0.54 ng/mL (0.0-3.38)
[2017-09-29 17:01] LABS: SQUAMOUS EPITHIAL 4 /hpf (0-5); URINE BILIRUBIN NEGATIVE (NEGATIVE); URINE BLOOD NEGATIVE (NEGATIVE); URINE CLARITY Hazy (Clear); URINE COLOR Yellow (YELLOW); URINE GLUCOSE (UA) 3+ mg/dL (Normal); URINE LEUKOCYTE ESTERASE NEG Leu/uL (Negative); URINE PROTEIN NEGATIVE (NEGATIVE); URINE UROBILINOGEN NORMAL mg/dL (0.2-1.0)
[2017-09-29 17:10] VITALS: BP 113/72; PULSE 82; RESP 20
--- NOTE | 2017-09-29 17:13 | CT ---
Date of service: 09/29/2017 PROCEDURE: CT HEAD WITHOUT CONTRAST. HISTORY: dizziness COMPARISON: No prior study available comparison. TECHNIQUE: Axial computed tomography images were obtained through the head/brain without intravenous contrast. Radiation dose: Total exam DLP = 822.64 mGy-cm. This CT exam was performed using one or more of the following dose reduction techniques: Automated exposure control, adjustment of the mA and/or kV according to patient size, and/or use of iterative reconstruction technique. . FINDINGS: HEMORRHAGE: No intracranial hemorrhage. BRAIN: Suspect very minimal chronic periventricular white matter ischemic changes. There is a very tiny focus of low attenuation in the region the anterior limb right internal capsule and most likely represents artifact the possibility of a tiny age-indeterminate lacunar type infarct cannot be excluded ; see axial image number 24 series 4. VENTRICLES: Unremarkable. No hydrocephalus. CALVARIUM: Unremarkable. PARANASAL SINUSES: Unremarkable as visualized. No significant inflammatory changes. MASTOID AIR CELLS: Unremarkable as visualized. No inflammatory changes. OTHER FINDINGS: None. IMPRESSION: No evidence of acute intracranial hemorrhage. Suspect very minimal chronic periventricular white matter ischemic changes There is a very tiny focus of low attenuation in the region the anterior limb right internal capsule and most likely represents artifact however clinical correlation with physical exam recommended.
[2017-09-29 17:17] VITALS: O2SAT 99
== END 2017-09-29 18:49 | disposition home or self-care (01) ==
LOC: SUPCPDRO 14:46 → C.ER 14:46
DX: R42 Dizziness and giddiness (principal)

== ENCOUNTER 2018-04-18 09:31 | Outpatient (CLI) | payer MEDICAID | END 2018-04-18 09:32 | disposition home or self-care (01) | LOC: C.RADH 09:31 | DX: M54.17 Radiculopathy, lumbosacral region (principal) ==